=== PATIENT | male | born 1950 | race Caucasian/White ===

== ENCOUNTER → 2016-10-28 | Outpatient (CLI) | payer BC ==
[~2016-10-28] MED LIST: LPR25 PO; NCDT14 TD; OXYC5TAB PO; PRED10TA PO
[2016-10-28 13:27] LABS: BLOOD UREA NITROGEN 13 mg/dl (7-18); BUN/CREATININE RATIO 11.5 (10-20); CALCIUM 8.9 mg/dl (8.5-10.1); CARBON DIOXIDE 26 mmol/L (21-32); CHLORIDE 105 mmol/L (98-107); GLUCOSE 100 mg/dl (70-99); POTASSIUM 4.2 mmol/L (3.5-5.1); SODIUM 138 mmol/L (136-145)
[2016-10-28 13:32] LABS: CHOLESTEROL 174 mg/dl (0-200); CHOLESTEROL/HDL RATIO 4.4; HDL CHOLESTEROL 40 mg/dl; LDL CHOLESTEROL CALCULATED 105 mg/dl; TRIGLYCERIDES 143 mg/dl (0-150); VERY LOW DENSITY LIPOPROT CALC 29 mg/dl
== END | disposition home or self-care (01) ==
LOC: C.LABPVFM 07:36
PROVIDERS: ATTEND Nurse Practitioner
DX: I10 Essential (primary) hypertension (principal)

== ENCOUNTER 2017-07-24 11:25 | Emergency (ER) | payer BC, OTHER ==
[~2017-07-24] VITALS: Ht 177.8 cm; Wt 95.0 kg
[2017-07-24 11:26] VITALS: TEMP 36.5; Ht 177.8 cm; Wt 95.0 kg
[2017-07-24] MEDS ORDERED: IBUP-1050 PO (12:06)
[2017-07-24] MEDS ORDERED: UMEC1AER INH (12:06)
[2017-07-24] MEDS ORDERED: METO25TA56 PO (12:09)
--- NOTE | 2017-07-24 12:26 | DIAGNOSTIC IMAGING REPORT ---
L KNEE 3 VIEWS CLINICAL HISTORY: 67 years-old Male presenting with Left knee pain/effusion. TECHNIQUE: Frontal, lateral, and sunrise views of the left knee were obtained. COMPARISON: None. FINDINGS: Medial joint space loss. Osteophytosis in the patellofemoral compartment and to a lesser extent in the lateral compartment. Moderate knee joint effusion. No acute fracture or malalignment. Osteopenia may be present. Atherosclerosis. No patellar subluxation. IMPRESSION: 1. Moderate knee joint effusion. 2. No acute osseous injury. 3. Tricompartmental degenerative changes. Electronically signed by: iJn Cabrera M.D. 07/24/2017 12:25 PM Dictated Date/Time: 07/24/2017 12:24 PM
[2017-07-24] MEDS ORDERED: ETHYL CHLORIDE AER PER SPRAY 100 ML CAN ONE (12:31)
[2017-07-24] MEDS ORDERED: INDO-24 PO (12:59)
[2017-07-24 13:12] VITALS: BP 122/79; PULSE 62; O2SAT 94
--- NOTE | 2017-07-24 16:55 | EMERGENCY ROOM VISIT NOTE ---
ED Visit Note First contact with patient: 11:36 CHIEF COMPLAINT: Left knee effusion HISTORY OF PRESENT ILLNESS: This 67-year-old white male patient presents with a swollen left knee. He states the swelling has been present for a week. It became worse over the last 2 days. He has lost some motion. Pain is worse with weightbearing. He denies any specific injury. He does work on a ladder daily. He denies any catching or locking. No buckling. No specific injury. He does not recall twisting it or landing on it awkwardly. No snaps or pops. His accompanies him today. No treatment yet. He denies any history of gout. REVIEW OF SYSTEM: HEENT: No dizziness, visual problems, hearing loss, or tinnitus. There is no difficulty swallowing and no oral lesions are present. PULMONARY: No cough, shortness of breath, sputum production or hemoptysis. CARDIOVASCULAR: No chest pain, palpitations, shortness of breath or peripheral edema. GASTROINTESTINAL: No diarrhea, constipation, nausea, vomiting, or abdominal pain. GENITOURINARY: No dysuria, frequency, urgency or nocturia. NEUROLOGIC: No weakness, muscle tenderness, epilepsy or history of neurological problems. MUSCULOSKELETAL: No history of joint tenderness/swelling. Pause history of arthritis and arthralgias. SKIN: No rashes or lesions. ENDOCRINE: No history of diabetes, thyroid disorders, or abnormal hair growth. PMH: Significant for hypertension, elevated cholesterol, osteoarthritis Previous surgeries: None. SOCIAL HISTORY: Patient lives at home with his . Employed. No tobacco use. Family history: Reviewed with patient and unremarkable. Current medications: Reviewed and filed in patient's chart Allergies: NKDA PHYSICAL EXAM: Vital Signs: Reviewed Nurse's notes. Afebrile. MENTAL STATUS: Alert, oriented, and cooperative. General: Well-developed, well-nourished, elderly white male, in no acute distress. Laying on a bed. Skin: Warm and dry with good turgor. No rashes or lesions. No ecchymosis or erythema. Moderate to large intra-articular effusion in the left knee. The patient is not diaphoretic. No abrasions. Musculoskeletal: The left knee is tender to palpation around the superior lateral pouch. He does have medial joint line tenderness as well. No pain with palpation in the calf, popliteal fossa, or hamstring. Intact motor function to the ankle. Swollen. The range of motion is limited secondary to pain and tightness. Lacks about 10 of terminal extension. Flexion to only 90 . There is no ligamentous instability. The patient walks with an antalgic gait. Neurologic: Gross sensation is intact across the left leg by soft touch. Peripheral pulses are 2+. Data: Radiographic imaging obtained today of the left knee was reviewed by me and read by radiology. He has moderate arthritic changes, worst in the medial compartment. Periarticular osteophytes, subchondral sclerosis, and joint space narrowing are all present. No evidence of fracture. Joint effusion is evident. EMERGENCY DEPARTMENT COURSE: Patient was educated regarding today's findings. Aspiration of the knee was recommended. He agreed. A timeout was taken in the left knee was confirmed with the patient. He was placed in an extended position. Bony landmarks identified in the superior lateral pouch was marked. Skin was cleansed with Betadine 2 and a alcohol swab 1. Skin was anesthetized using of the chloride spray. An 18-gauge needle was used to aspirate 40 mL of turbid yellow synovial fluid. First 5ml were sent to the lab. Hemostasis was achieved with a Band-Aid. Compression wrap was applied. DIAGNOSIS: Left knee effusion DISCHARGE INSTRUCTIONS: Possibility of gout versus pseudogout was discussed. I do not suspect joint infection at this time. He was placed in compressigrip for edema control. Ice and elevate frequently to reduce pain and swelling. Patient was started empirically on indomethacin 50 mg 3 times daily with food until pain resolves. Maintain hydration. Limit protein intake. Ice to and elevation to the knee frequently for the next 72 hours. Crystal analysis, Gram stain and culture, and cell count were ordered for the synovial fluid. Possibility of ligamentous injury, meniscal injury, and articular cartilage injury were also considered and discussed. Current/Historical Medications Scheduled Ibuprofen (Advil), 200 MG PO UD Indomethacin (Indocin), 50 MG PO TID Metoprolol Tartrate (Lopressor) (Lopressor), 25 MG PO BID Umeclidinium-Vilanterol (Anoro Ellipta 62.5-25 Mcg/INH), 1 PUFF INH QAM Allergies Coded Allergies: No Known Allergies (Unverified , 07/24/17) Vital Signs Date Time Temp Pulse Resp B/P (MAP) Pulse Ox O2 Delivery O2 Flow Rate FiO2 07/24/17 13:12 62 18 122/79 94 Room Air 07/24/17 11:26 36.5 69 16 150/70 94 Room Air Laboratory Results Test 07/24/17 12:35 Synovial Fluid Source KNEE Synovial Fluid Color YELLOW Synovial Fluid Appearance CLOUDY Synovial Fluid WBC 17840 /uL (0-200) Synovial Fluid RBC 63853 /uL Synovial Fluid Polynuclear WBCs % 87.3 % Synovial Fluid Mononuclear WBCs % 12.7 % Medications Administered Medications (Trade) Dose Ordered Sig/Kellen Route Start Time Stop Time Status Last Admin Dose Admin Ethyl Chloride (Ethyl Chloride Aerosol Per Crary) 1 spry STK-MED ONCE .ROUTE 07/24/17 12:31 07/24/17 12:32 DC 07/24/17 12:41 1 SPRY Departure Information Dispostion Home / Self-Care Condition GOOD Prescriptions Indomethacin (Indocin) 50 Mg Cap 50 MG PO TID, #15 CAP Prov: Quentin Henderson,P.A. 07/24/17 Forms HOME CARE DOCUMENTATION FORM, TYLENOL USE, Work Instructions, Specific Date: 07/28/17 Additional Instructions: Please excuse Amaury from work until 07/28/17. IMPORTANT VISIT INFORMATION Patient Instructions My [facility] Additional Instructions Ice and elevate the knee frequently to reduce pain and swelling Keep the compression wrap in place for edema control-remove for bathing Indomethacin 1 pill 3 times a day with food, until pain resolves Supplement with Tylenol every 6 hours as needed Follow up with your PCP as needed Return to the ED for any acute worsening of symptoms Work Instructions Specific Date: 07/28/17 Additional Work Instructions: Please excuse Amaury from work until 07/28/17.
== END 2017-07-24 13:14 | disposition home or self-care (01) ==
LOC: C.EDB 11:26 → C.EDD 13:14
DX: M25.462 Effusion, left knee (principal); I10 Essential (primary) hypertension; E78.5 Hyperlipidemia, unspecified; M19.90 Unspecified osteoarthritis, unspecified site

== ENCOUNTER 2025-02-24 02:42 | Inpatient (IN) ==
[2025-02-24] MEDS: ONDANSETRON INJ 2 MG/ML 2 ML VIAL ONE (03:28)
[2025-02-24] MEDS: SODIUM CHLORIDE 0.9% 500 ML IV SCH (04:18)
[2025-02-24 04:39] LABS: Alanine Aminotransferase 96.0 U/L (7-52); Albumin Globulin Ratio 1.1 (0.9-2); Albumin Level 4.1 gm/dl (3.4-5.0); Alkaline Phosphatase 76.0 U/L (34-104); Anion Gap 15.0 (3-11); Bilirubin,Total 1.1 mg/dl (0.2-1.0); Blood Urea Nitrogen 36.0 mg/dl (6-23); Calcium 9.1 mg/dl (8.6-10.3); Carbon Dioxide 18.0 mmol/L (21-32); Chloride 98.0 mmol/L (98-107); Creatinine Clr Calc Pharmacy 36.2 ml/min; Globulin 3.8 gm/dl (2.5-4.0); Glucose 241.0 mg/dl (70-99(Fasting)); Magnesium 2.1 mg/dl (1.7-2.4); Potassium 4.1 mmol/L (3.5-5.1); Sodium 131.0 mmol/L (136-145); Total Protein 7.9 gm/dl (6.0-8.3)
[2025-02-24] MEDS: FAMOTIDINE 20MG IV PUSH 20 MG/5 ML SYR IV STA (04:41)
[2025-02-24] MEDS: CALCIUM CARBONATE 500 MG CHEWABLE TAB PO STA (04:41)
[2025-02-24 04:54] LABS: Thyroid Stimulating Hormone 2.737 uIu/ml (0.300-4.500)
[2025-02-24] MEDS: DIPHTHER/TETAN/PERTUS Vaccine (Tdap, Adol/Adult) 0.5mL IM ONE (05:06)
[2025-02-24 05:08] LABS: Chlamydia pneumoniae PCR Not Detected (NotDetected); Coronavirus 229E PCR Not Detected (NotDetected); Coronavirus CoV-2 (COVID19)PCR Not Detected (NotDetected); Coronavirus HKU1 PCR Not Detected (NotDetected); Coronavirus NL63 PCR Not Detected (NotDetected); Coronavirus OC43PCR Not Detected (NotDetected); Human Metapneumovirus PCR Not Detected (NotDetected); Parainfluenza Virus 1 PCR Not Detected (NotDetected); Parainfluenza Virus 2 PCR Not Detected (NotDetected); Parainfluenza Virus 3 PCR Not Detected (NotDetected); Parainfluenza Virus 4 PCR Not Detected (NotDetected); Respiratory Syncytial VirusPCR Not Detected (NotDetected); Rhinovirus/Enterovirus PCR DETECTED (NotDetected)
--- NOTE | 2025-02-24 05:08 | XRay Report ---
EXAM: XR chest 1V portable CLINICAL HISTORY: weakness TECHNIQUE: An X-ray image of the chest was obtained in AP projection. COMPARISON: With the prior study dated 11/16/2024 and 06/27/2024. FINDINGS: Pulmonary Parenchyma: Bilateral lower lung zone scattered reticulonodularity is stable since the prior CT. The right hilar shadow corresponds to a prominent osteophyte. There is no evidence of consolidation, collapse, or focal opacities. No pulmonary nodules are identified. There is no evidence of pleural effusion or pleural thickening. Heart and Mediastinum: An increased cardiothoracic ratio is noted. There is no mediastinal widening or masses. No hilar or mediastinal lymphadenopathy is present. Bony Thorax: Right AC joint osteoarthritis is noted. The bony thorax appears intact without fractures or deformities. Soft Tissues: The soft tissues overlying the chest wall are unremarkable. IMPRESSION: 1. Bilateral lower lung zone scattered reticulonodularity is stable since the prior CT. 2. The right hilar shadow corresponds to a prominent osteophyte. 3. No newly developed lesions are appreciated. Electronically signed by Karl Mcneil 02-24-2025 05:08 AM
[2025-02-24] MEDS: SODIUM CHLORIDE 0.9% 500 ML IV ONE (05:12)
--- NOTE | 2025-02-24 05:21 | Emergency Department Note ---
ED Visit Note Laceration Repair Location: Left eyebrow Total length: 2.6cm Complexity: Simple Verbal consent was obtained after the risks and benefits were explained, including but not limited to bleeding, scarring, infection, pain, and bone/joint/nerve damage. At this time, the risks of the procedure are less than the risks of NOT performing the procedure. A time out was taken and the correct patient and site identified. The skin was prepped with betadine. The target area was anesthetized with 2 ml of 1% lidocaine without epinephrine. Copious irrig ation was performed using nss. The skin was re-prepped with betadine and a sterile field set. The wound was explored for foreign bodies and none found. Examination revealed no injury to deep structures such as tendons, bone, or significant blood vessels. Debridement was not performed. The wound edges were approximated using 3, 6-0 simple interrupted nylon sutures. Hemostasis and excellent approximation was achieved. Antibacterial ointment and a sterile dressing applied. Detailed wound care instructions and signs and symptoms of infection reviewed with the pt. No complications and the patient tolerated the procedure well. .
--- NOTE | 2025-02-24 05:23 | Emergency Department Note ---
Impression & Plan DAVID (acute kidney injury), Fall, Facial laceration, Thrombocytopenia Admit to the [facility] ED Provider Note NAME: VICKIE FELIX AGE: 74 SEX: Male INFORMANT: Patient ED PROVIDER(S): Dana Thakur DO CHIEF COMPLAINT: Fall PLAN: Disposition: Admit to the [facility] MEDICAL DECISION MAKING: This is a 74-year-old male patient who was walking to the bathroom tonight when he became so weak he fell to the ground and was unable to get up. Patient states that he has been weak all week and has had difficulty getting out of bed for the past 2 days. He describes having some diarrhea and wonders if he has a UTI as he becomes nauseated when he has to urinate and become slightly incontinent. Patient describes very little food intake for the past 2 days. Patient wears 2 L of oxygen chronically but feels more short of breath. When patient fell to the ground he struck the left side of his face and caused a laceration just above his left eyebrow. He was given an Adacel booster here and the laceration was repaired by Jada Jeff PA-C. Please see her procedure note dictation for details. Patient went for CT scan of the brain, facial bones and cervical spine to rule out acute traumatic injuries. Patient was noted to be thrombocytopenic on laboratory testing. And there was concern for anaplasmosis on peripheral smear. Additional blood work was sent along with Lyme testing. Patient has DAVID with a BUN of 36 and creatinine of 2.09. Glucose was elevated to 41. AST at 105 and ALT at 96 [employer] testing was positive for rhinovirus and enterovirus. Troponin was 17.8. Patient was bolused with IV normal saline solution for obvious signs of dehydration and his DAVID. Patient does describe urinary symptoms. We were awaiting urinalysis. I discussed the case with the [facility] Hospitalist and they will evaluate for further inpatient care. Care/management discussed with: logistic manager [facility] Triage Nursing notes: reviewed and agree with them. Vital Signs: reviewed and remarkable for tachycardia Additional History obtained from: patient's Chronic Medical/Social Conditions affecting care: none Prior/ Outside/ External records reviewed: I did review his recent wellness visit from [facility] Differential Diagnosis: UTI, dehydration, facial bone fractures, head injury, C-spine injury Diagnostics, independently interpreted by me: ECG: sinus tachycardia at a rate of [address] segment elevation or signs of ischemia. There were frequent PVCs. Cardiac Monitoring: Sinus tachycardia at a rate of 110 with frequent PVCs Imaging studies: portable chest x-ray: As per [facility] CT scan of the brain: As per [facility] CT scan of the facial bones: As per [facility] CT scan of the cervical spine: As per [facility] HPI: 74 year old Male arrives for evaluation of fall. Patient has been having weakness and difficulty getting out of bed for the past 2 days. He has had very little oral intake of food over the past 2 days. He describes urinary symptoms over the past couple of days. When he did get out of bed tonight to go to the bathroom, he states that his legs gave out on him and he fell to the ground. PAST MEDICAL HISTORY: See Below, PAST SURGICAL HISTORY: See Below, SOCIAL HISTORY: See Below, HOME MEDICATIONS: See list ALLERGIES: None VITALS: See Below PHYSICAL EXAMINATION: Primary Survey Airway: Intact Breathing: Normal, breath sounds equal bilaterally Circulation: Skin warm, distal pulses 2+, capillary refill less than 2 seconds Disability Pupils: Equal and reactive to light, 5mm, brisk GCS: 15, E = 6 V=5 M= 4 Motor Function: Moves all extremities. Sensory: No deficits Secondary Survey GEN: Well developed and well-nourished HEAD: Normal cephalic with a tiny puncture wound to the bridge of the nose and a 2.6 cm laceration above the left eyebrow. EYES: Pupils round reactive to light, conjunctiva clear, extraocular movements intact, no raccoons eyes ENT: No fluid in external acoustic canals, no hemotympanum, no morelos's sign, nares patent, oropharynx clear NECK: No JVD, midline trachea, no cervical spine tenderness. HEART: Tachycardic rate and regular rhythm LUNGS: Clear to auscultation bilaterally. CHEST: Chest wall non-tender, no bruising/deformity ABD: No Monahan-Mac's or Uvaldo's sign, soft, non-tender, no rebound or guarding, PELVIS: Stable to rock BACK: No step offs or deformities, T-L spine non tender EXT: 2+ global pulses, moving all extremities well, +5/5 muscle strength globally NEURO: CNII-XII grossly intact, no sensory deficits PROCEDURES: Please see suture repair dictation by Jada Jeff PA-C. Emergency Department treatment: desk monitor, supplemental oxygen, IM Adacel, IV normal saline bolus x 2 Emergency Department course: The patient was evaluated in room A-11 as an injury alert. A complete history and physical was performed. Laboratory studies were drawn as above. Order was placed for continuous cardiac monitoring. The patient was in a sinus tachycardia at a rate of 110. Twelve-lead EKG was obtained as described above. Portable chest x-ray was performed. Patient went for CT scan of the brain, facial bones and cervical spine. Patient was given Adacel booster. He was bolused with 500 cc of saline. I did review some of the results with the patient and his . He was given another 500 cc bolus of saline. The wound on his face was repaired by Jada Jeff PA-C. Please see her procedure note dictation for details. I discussed the case with the [facility] Hospitalist and they will evaluate for further inpatient care. 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 possible Hx CVA or Stephenson palsy?? Nasal sinus congestion Frequent PVCs Bradycardia Positive colorectal cancer screening using Cologuard test Severe chronic obstructive pulmonary disease Fatigue (Acute) Emphysema lung (Chronic) Hypertension (Chronic) Medical History History of COVID-19 (2021) no ongoing issues known. History of skin cancer Emphysema lung not to pt knowledge/never been brought up per pt. COPD (chronic obstructive pulmonary disease) 2 L oxygen to be used at night. In process of getting oxygen/have nothing yet. HTN (hypertension) Surgical History History of colonoscopy History of Mohs micrographic surgery for skin cancer Status post aortic aneurysm repair (11/2015) Family History Denies family history of Ovarian cancer Prostate cancer Myocardial infarction Breast cancer Colorectal cancer Social History Smoking Status: Former smoker Tobacco Type: Cigarettes Age Started Using Tobacco: 17; Age Quit Using Tobacco: 65; packs per day: 1; Cigarettes Per Day: 30; Second Hand Exposure: No; Do You Dip or Chew Tobacco: No (hx , quit 2016); Hx Alcohol Use: Yes Alcohol type: beer Alcohol Intake Frequency: 2-3 x/Week Hx Substance Use: No Preferred Language: Japanese Communication Ability: Effective Visual Impairment: No Limitations Hearing Ability: Normal [employer] Required: No Beliefs That Will Affect Care: None marital status: Current Living Situation: Spouse current occupational status: retired How many Children do You have: 1 Feels Safe at Home: Yes Childhood Exposure to Second-Hand Smoke: No Diet: regular caffeine: Yes during the past year weight has: remained stable Dental Care, Regularly: Yes Physical Activity Frequency: 3-4 Times per Week Seatbelt Use: sometimes Sunscreen Use: No Do you think of yourself as: straight/heterosexual Gender Identity: Male Assistive Devices: Glasses Allergies Allergies Allergy/AdvReac Type Severity Reaction Status Date / Time No Known Allergies Allergy Verified 02/24/25 02:57 Home Meds Home Medications Medication Instructions Recorded Confirmed ergocalciferol (vitamin D2) 50 mcg 50 mcg PO DAILY 04/02/21 02/24/25 (2,000 unit) capsule multivitamin 1 tab PO DAILY 09/08/21 02/24/25 albuterol sulfate 90 mcg/actuation 2 puff inhalation UD PRN shortness 01/10/24 02/24/25 aerosol inhaler of breath or wheezing fluticasone propionate 50 1 spray intranasal BID PRN 10/18/24 02/24/25 mcg/actuation nasal Congestion spray,suspension aspirin 81 mg tablet,delayed 81 mg PO DAILY 01/09/25 02/24/25 release (Adult Low Dose Aspirin) Previous Rx's Medication Instructions Recorded nebulizer with tubing #1 ea 04/20/23 metoprolol tartrate 25 mg tablet 25 mg PO BID #180 tabs 04/24/24 albuterol sulfate 2.5 mg/3 mL 2.5 mg (3 mL) inhalation QID PRN 06/19/24 (0.083 %) solution for nebulization shortness of breath or wheezing #180 mL ipratropium 0.5 mg-albuterol 3 mg 3 ml inhalation Q4H PRN copd #90 mL 07/04/24 (2.5 mg base)/3 mL nebulization soln fluticasone fur. 100 mcg-umeclid 1 inh inhalation DAILY #180 ea 10/13/24 62.5 mcg-vilant 25 mcg inhalat.powder (Trelegy Ellipta) rosuvastatin 5 mg tablet 5 mg PO DAILY #90 tabs 10/18/24 Results & Data (ED) Vital Signs Vital Signs - 24 hr 02/24/25 02:46 02/24/25 02:50 02/24/25 02:55 Temperature 36.9 C Temperature Source Oral Pulse Rate 113 H 117 H Pulse Rate [Apical] Respiratory Rate 22 Respiratory Effort / Characteristics Pursed Lip Short of Breath Blood Pressure 137/79 Blood Pressure [Left Arm] Blood Pressure Mean 98 Blood Pressure Mean [Left Arm] Pulse Oximetry 95 96 Oxygen Delivery Method Nasal Cannula Nasal Cannula Oxygen Flow Rate 2 Sepsis Recent Fever Within 48 Hours No Sepsis New/Unexplained Change in Mental Status No Sepsis Action Taken by Nursing No Action Required 02/24/25 04:00 Temperature Temperature Source Pulse Rate Pulse Rate [Apical] 102 H Respiratory Rate 20 Respiratory Effort / Characteristics Non-Labored Blood Pressure Blood Pressure [Left Arm] 115/76 Blood Pressure Mean Blood Pressure Mean [Left Arm] 89 Pulse Oximetry 95 Oxygen Delivery Method Nasal Cannula Oxygen Flow Rate 2 Sepsis Recent Fever Within 48 Hours Sepsis New/Unexplained Change in Mental Status Sepsis Action Taken by Nursing Laboratory Data 02/24/25 04:06 02/24/25 04:06 Lab Results 02/24/25 02/24/25 02/24/25 Range/Units 02:52 04:06 04:13 WBC 6.22 (4.8-10.8) K/ul RBC 5.53 (4.70-6.10) M/uL Hgb 17.2 (14.0-18.0) g/dl Hct 49.5 (42.0-52.0) % MCV 89.5 (80.0-100.0) fL MCH 31.1 (25.0-34.0) pg MCHC 34.7 (32.0-36.0) g/dL RDW Std Deviation 43.9 (36.4-46.3) fL RDW Coeff of Bubba 13.3 (11.5-14.5) % Plt Count 63 L (130-400) K/uL MPV 11.8 (9.4-12.4) fL Immature Gran % (Auto) 0.6 % Neut % (Auto) 80.6 % Lymph % (Auto) 10.1 % Owen % (Auto) 8.4 % Eos % (Auto) 0.0 % Baso % (Auto) 0.3 % Neut # (Auto) 5.01 (1.40-6.50) K/uL Lymph # (Auto) 0.63 L (1.20-3.40) K/uL Owen # (Auto) 0.52 (0.11-0.59) K/uL Eos # (Auto) 0.00 (0.00-0.50) K/uL Baso # (Auto) 0.02 (0.00-0.20) K/uL Immature Gran # (Auto) 0.04 (0.01-0.20) K/uL Sodium 131 L (136-145) mmol/L Potassium 4.1 (3.5-5.1) mmol/L Chloride 98 (98-107) mmol/L Carbon Dioxide 18 L (21-32) mmol/L Anion Gap 15 H (3-11) BUN 36 H (6-23) mg/dl Creatinine 2.09 H (0.6-1.4) mg/dl Est Cr Clr Drug Dosing 36.2 ml/min eGFR 32.81 BUN/Creatinine Ratio 17.2 (10-20) Glucose 241 H (70-99(Fasting)) mg/dl Calcium 9.1 (8.6-10.3) mg/dl Magnesium 2.1 (1.7-2.4) mg/dl Total Bilirubin 1.1 H (0.2-1.0) mg/dl AST 105 H (13-39) U/L ALT 96 H (7-52) U/L Alkaline Phosphatase 76 (34-104) U/L Total Creatine Kinase 355 H (30-223) U/L Troponin I High Sens 17.8 (0-20) pg/ml Total Protein 7.9 (6.0-8.3) gm/dl Albumin 4.1 (3.4-5.0) gm/dl Globulin 3.8 (2.5-4.0) gm/dl Albumin/Globulin Ratio 1.1 (0.9-2) TSH 2.737 (0.300-4.500) uIu/ml Adenovirus (PCR) Not Detected (NotDetected) Anaplasma Smear See Comment A Anaplasma Comment B. pertussis DNA (PCR) Not Detected (NotDetected) B.parapertussis DNA PCR Not Detected (NotDetected) Lyme Disease Screen Positive H (Negative) Lyme Tier 2 IgG Confirm Positive H (Negative) Lyme Tier 2 IgM Confirm Negative (Negative) C. pneumoniae DNA (PCR) Not Detected (NotDetected) Coronavirus OC43 (PCR) Not Detected (NotDetected) Coronavirus HKU1 (PCR) Not Detected (NotDetected) Coronavirus 229E (PCR) Not Detected (NotDetected) SARS-CoV-2 (PCR) Not Detected (NotDetected) Coronavirus NL63 (PCR) Not Detected (NotDetected) Human Metapneumovir PCR Not Detected (NotDetected) Influenza Type A (PCR) Not Detected (NotDetected) Influenza Type B (PCR) Not Detected (NotDetected) M. pneumoniae (PCR) Not Detected (NotDetected) Parainfluenza 1 (PCR) Not Detected (NotDetected) Parainfluenza 2 (PCR) Not Detected (NotDetected) Parainfluenza 3 (PCR) Not Detected (NotDetected) Parainfluenza 4 (PCR) Not Detected (NotDetected) RSV (PCR) Not Detected (NotDetected) Entero/Rhino (PCR) DETECTED A (NotDetected) Administered Medications Aspirin (Aspirin 81 Mg Ectab) 81 mg PO DAILY [facility] Stop: 03/26/25 08:59 Last Admin: 02/24/25 10:20 Dose: 81 mg Documented By: NICOLASA Doxycycline Hyclate (Doxycycline Hyclate 100 Mg Cap) 100 mg PO BID DEBRA Stop: 03/10/25 09:29 Last Admin: 02/24/25 10:19 Dose: 100 mg Documented By: NICOLASA Fluticasone Furoate (Fluticasone Furoate 100mcg 14 Puffs/Inhaler) 1 puffs INH DAILY DEB[facility] Stop: 03/26/25 09:14 Last Admin: 02/24/25 10:20 Dose: 1 puffs Documented By: TNK Lactated Ringer's (Lr) 1,000 mls @ 125 mls/hr IV .Q8H DEBRA Stop: 02/25/25 00:59 Last Admin: 02/24/25 10:24 Dose: 125 mls/hr Documented By: TNK Metoprolol Tartrate (Metoprolol Tartrate 25 Mg Tab) 25 mg PO BID DEBRA Stop: 03/26/25 08:59 Last Admin: 02/24/25 10:20 Dose: 25 mg Documented By: TNK Rosuvastatin Calcium (Rosuvastatin Calcium 5 Mg Tab) 5 mg PO DAILY DEBRA Stop: 03/26/25 08:59 Last Admin: 02/24/25 10:20 Dose: 5 mg Documented By: TNK Umeclidinium/Vilanterol (Umeclidinium/Vilanterol 62.5/25mcg 7 Puffs/Inhaler) 1 puffs INH DAILY DEBRA Stop: 03/26/25 09:14 Last Admin: 02/24/25 10:20 Dose: 1 puffs Documented By: TNK Discontinued Medications Calcium Carbonate (Calcium Carbonate 500 Mg Chewable Tab) 500 mg PO NOW STA Stop: 02/24/25 04:33 Last Admin: 02/24/25 04:41 Dose: 500 mg Documented By: abl Diphtheria/Pertussis/Tetanus Vacc (Diphther/Tetan/Pertus Vaccine (Tdap, Adol/Adult) 0.5ml) 0.5 ml IM .ONCE ONE Stop: 02/24/25 04:54 Last Admin: 02/24/25 05:06 Dose: 0.5 ml Documented By: abl Sodium Chloride (Nss) 500 mls @ 999 mls/hr IV .Q31M DEBRA Stop: 02/24/25 04:45 Last Infusion: 02/24/25 04:55 Dose: Infused Documented By: abl Admin: 02/24/25 04:18 Dose: 999 mls/hr Documented By: abl Famotidine (Pepcid 20mg Iv Push) 20 mg in 5 mls @ 2.5 mls/min IV NOW STA Stop: 02/24/25 04:33 Last Admin: 02/24/25 04:41 Dose: 2.5 mls/min Documented By: abl Sodium Chloride (Nss) 500 mls @ 999 mls/hr IV .Q31M ONE Stop: 02/24/25 05:16 Last Infusion: 02/24/25 06:36 Dose: Infused Documented By: abl Admin: 02/24/25 05:12 Dose: 999 mls/hr Documented By: dre Lidocaine HCl (Lidocaine 1% Local 20 Ml Vial) 3 ml INFIL NOW ONE Stop: 02/24/25 04:46 Last Admin: 02/24/25 06:12 Dose: 3 ml Documented By: BC Nitroglycerin (Nitroglycerin Sl 0.4 Mg/Tab Tab) Confirm Administered Dose 0.4 mg .ROUTE .STK-MED ONE Stop: 02/24/25 14:16 Last Admin: 02/24/25 14:18 Dose: 0.4 mg Documented By: NICOLASA Nitroglycerin (Nitroglycerin Sl 0.4 Mg/Tab Tab) 0.4 mg SL NOW STA Stop: 02/24/25 14:17 Last Admin: 02/24/25 14:21 Dose: Not Given Documented By: NICOLASA Non-Formulary Medication (Hfmmesiwpfl-Bdalsnlod-Vogswman [Trelegy Ellipta]) 1 puffs INH DAILY DEBRA Stop: 03/26/25 08:59 Last Admin: 02/24/25 10:26 Dose: Not Given Documented By: NICOLASA Ondansetron HCl (Ondansetron Inj 2 Mg/Ml 2 Ml Vial) Confirm Administered Dose 4 mg .ROUTE .STK-MED ONE Stop: 02/24/25 03:28 Last Admin: 02/24/25 03:28 Dose: 4 mg Documented By: dre Imaging Data Radiologist's Impression: Chest X-Ray 02/24/25 04:06 EXAM: XR chest 1V portable CLINICAL HISTORY: weakness TECHNIQUE: An X-ray image of the chest was obtained in AP projection. COMPARISON: With the prior study dated 11/16/2024 and 06/27/2024. FINDINGS: Pulmonary Parenchyma: Bilateral lower lung zone scattered reticulonodularity is stable since the prior CT. The right hilar shadow corresponds to a prominent osteophyte. There is no evidence of consolidation, collapse, or focal opacities. No pulmonary nodules are identified. There is no evidence of pleural effusion or pleural thickening. Heart and Mediastinum: An increased cardiothoracic ratio is noted. There is no mediastinal widening or masses. No hilar or mediastinal lymphadenopathy is present. Bony Thorax: Right AC joint osteoarthritis is noted. The bony thorax appears intact without fractures or deformities. Soft Tissues: The soft tissues overlying the chest wall are unremarkable. IMPRESSION: 1. Bilateral lower lung zone scattered reticulonodularity is stable since the prior CT. 2. The right hilar shadow corresponds to a prominent osteophyte. 3. No newly developed lesions are appreciated. Electronically signed by Karl Mcneil 02-24-2025 05:[address] 02/24/25 04:45 EXAM: CT cervical spine wo con CLINICAL HISTORY: trauma. TECHNIQUE: CT scan of the cervical spine was performed without the administration of intravenous contrast. Contiguous axial images were obtained from the skull base to the upper thoracic spine. Coronal and sagittal reformatted images were also reviewed. One of the following dose reduction techniques was utilized for this exam: automated exposure control, adjustment of the mA and/or kV according to patient size, and use of iterative reconstruction. COMPARISON: No previous studies are available for comparison. FINDINGS: Vertebrae: The vertebral bodies are normal in height and alignment. There is no evidence of acute fracture or dislocation. The cortical and trabecular bone patterns are normal. There are no signs of lytic or sclerotic lesions. The configuration of the posterior elements is normal. Intervertebral Discs: C2-C3: There is no significant disc pathology, and no apparent spinal canal or neural foramen stenosis. C3-C4: There is a right paracentral and foraminal protrusion (4.5 mm) with adjacent bony hypertrophy and right facet joint arthropathy, causing mild spinal canal stenosis and right moderate to severe neural foramen stenosis. C4-C5: There is a central protrusion indenting the anterior epidural space without apparent spinal canal or neural foramen stenosis. C5-C6 and C6-C7: There is a diffuse disc bulge with adjacent bony hypertrophy causing spinal canal stenosis and bilateral moderate to severe neural foramen stenosis, and bilateral mild facet joint arthropathy exacerbating the pressure effect. C7-T1: There is right facet joint arthropathy causing mild stenosis of the right neural foramen, but no significant disc pathology and no apparent spinal canal or neural foramen stenosis. The intervertebral disc spaces are preserved. Facet Joints: There are diffuse osteoarthritic changes of the facet joints without evidence of dislocation or subluxation. Prevertebral Soft Tissues: The prevertebral soft tissues are normal in thickness, without evidence of mass or abnormal fluid collection. Additional Findings: No other significant findings are noted in the visualized soft tissue structures or bony elements. IMPRESSION: 1. There is no evidence of acute fracture or dislocation. 2. There are multilevel disc degenerative changes with disc bulges, prominently at C3-C4, C5-C6, and C6-C7, causing moderate to severe pressure effect as described. Electronically signed by Karl Mcneil 02-24-2025 06:[address] 02/24/25 04:45 EXAM: CT facial bones wo con CLINICAL HISTORY: trauma TECHNIQUE: Non-contrast CT scan of the facial bones was performed with sagittal and coronal multiplanar reconstruction. One of the following dose reduction techniques was utilized for this exam: automated exposure control, adjustment of the mA and/or kV according to patient size, and use of iterative reconstruction. COMPARISON: None. FINDINGS: Sinuses: There is fluid opacification of the right frontal sinus and mild mucosal thickening of the right-sided ethmoid air cells. A mucous retention cyst is noted in the left maxillary sinus. There is minimal thickening of the right maxillary sinus. There is a deviated nasal septum with a spur on the left side. Nasal Cavity: The nasal cavity is unremarkable. There are no masses, polyps, or deviations. Orbits: The orbits are normal in size and shape. The extraocular muscles and optic nerves are normal. There is no evidence of orbital masses or proptosis. Maxilla and Mandible: There is normal appearance of the maxillary and mandibular bones. There are no fractures or lytic or sclerotic lesions. There is normal dentition without significant periodontal disease. Facial Bones: There are no fractures or deformities. The zygomatic arches, nasal bones, and other facial structures are intact. Soft Tissues: The soft tissues of the face are normal. There are no abnormal masses, swelling, or lymphadenopathy. Salivary Glands: The parotid, submandibular, and sublingual glands are normal. There is no evidence of sialadenitis or masses. Temporomandibular Joints (TMJ): There is normal appearance of the TMJs bilaterally. There is no evidence of joint effusion, degenerative changes, or dislocation. There are degenerative changes in the visualized cervical spine. IMPRESSION: 1. No gross fracture or dislocation. 2. No evidence of soft tissue injury. Electronically signed by Karl Mcneil 02-24-2025 06:[address] 02/24/25 04:45 EXAM: CT head/brain wo con CLINICAL HISTORY: trauma TECHNIQUE: Axial non-contrast CT scan of the brain was performed from the skull base to the high parietal region. One of the following dose reduction techniques was utilized for this exam: automated exposure control, adjustment of the mA and/or kV according to patient size, and use of iterative reconstruction. COMPARISON: 09/29/2024 MR FINDINGS: Brain Parenchyma: Mild bilateral periventricular hypodensities are suggestive of microvascular ischemic changes. Age-appropriate involutional brain changes are present, with deepening of the cortical sulci and prominence of fissures. Age-appropriate involutional brain changes are present, with deepening of the cortical sulci and prominence of the sylvian fissure. Left basal ganglia calcification is redemonstrated. Ventricular System: The ventricles are normal in size and configuration. There is no evidence of hydrocephalus or ventricular enlargement. Cerebellum and Brainstem: No masses, lesions, or areas of abnormal density are identified. Orbits: There is normal appearance of the globes, optic nerves, and extraocular muscles. There is no evidence of orbital masses or abnormal density. Sinuses: There is opacification of the right frontal sinus and thickening of the right ethmoid air cells. There is a deviated nasal septum with a spur on the left side. Mastoid Air Cells: The mastoid air cells are clear. There is no evidence of mastoiditis. Skull: There is normal skull morphology. IMPRESSION: 1. No evidence of hemorrhage. 2. No established territorial ischemic infarction. 3. Periventricular microvascular ischemic changes bilaterally. 4. No significant interval changes. Electronically signed by Karl Mcneil 02-24-2025 06:14 AM Discharge Plan Visit Data Chief Complaint: Fall Stated Complaint: FALL, HIT FACE, LAC TO NOSE, SOB ED Provider: Dana Thkaur Discharge Problem: DAVID (acute kidney injury), Fall, Facial laceration, Thrombocytopenia Condition: Serious Discharge Instructions Interventions: ED Discharge Assessment Last Done: 02/24/25 09:00
--- NOTE | 2025-02-24 05:33 | History & Physical Report ---
Date of Service February 24, 2025 Assessment & Plan (1) Weakness: (2) DAVID (acute kidney injury): (3) Atherogenic dyslipidemia: (4) Hypertension: (5) Emphysema lung: Plan 74yo male with COPD presenting with one week of illness, decreased oral intake, dysuria. Generalized weakness with a fall at home this evening resulting in laceration over left eyebrow #Generalized weakness - multifactorial. Patient with Entero/Rhino virus, dehydration, possible UTI given incontinence -Admit to medical -Awaiting UA - antibiotics should be initiated if infection present -Maintain isolation for Enterovirus -Tylenol PRN #DAVID/Dehydration - poor oral intake for the last several days as well as GI losses with vomiting and diarrhea. Cr=2.09 - last normal at 1.13 in December 2024 -Avoid nephrotoxic agents -Renal dosing where needed -IVF with LR at 125mL/hr x 2L #Hyperlipidemia -Continue Crestor #COPD - stable, no cough or wheeze -Continue Trelegy -DuoNebs q 4 hours -Abuterol PRN -O2 qHS History of Present Illness Chief Complaint: weakness, syncope Primary Care Provider: JONH Wall Amaury Damon is a 74yo male with history of COPD on O2 qHS, HTN presenting with generalized weakness and a syncopal event at home. Patient has not been feeling well for the last week - generalized weakness and fatigue as well as some nausea, vomiting, diarrhea and abdominal discomfort. Not much PO intake for the last two days. Also with some urinary incontinence. Has been getting more weak, mostly in bed the last 2 days. This evening got up to go to the bathroom and fell and hit his face sustaining a laceration over left eyebrow In the ER he is afebrile, HD stable Allergies Allergy/AdvReac Type Severity Reaction Status Date / Time No Known Allergies Allergy Verified 02/24/25 02:57 Home Medications Medication Instructions Recorded Confirmed Type ergocalciferol (vitamin D2) 50 mcg 50 mcg PO DAILY 04/02/21 02/24/25 History (2,000 unit) capsule multivitamin 1 tab PO DAILY 09/08/21 02/24/25 History nebulizer with tubing #1 ea 04/20/23 01/23/25 Rx albuterol sulfate 90 mcg/actuation 2 puff inhalation UD PRN shortness 01/10/24 02/24/25 History aerosol inhaler of breath or wheezing metoprolol tartrate 25 mg tablet 25 mg PO BID #180 tabs 04/24/24 02/24/25 Rx albuterol sulfate 2.5 mg/3 mL 2.5 mg (3 mL) inhalation QID PRN 06/19/24 02/24/25 Rx (0.083 %) solution for nebulization shortness of breath or wheezing #180 mL ipratropium 0.5 mg-albuterol 3 mg 3 ml inhalation Q4H PRN copd #90 mL 07/04/24 02/24/25 Rx (2.5 mg base)/3 mL nebulization soln fluticasone fur. 100 mcg-umeclid 1 inh inhalation DAILY #180 ea 10/13/24 02/24/25 Rx 62.5 mcg-vilant 25 mcg inhalat.powder (Trelegy Ellipta) fluticasone propionate 50 1 spray intranasal BID PRN 10/18/24 02/24/25 History mcg/actuation nasal Congestion spray,suspension rosuvastatin 5 mg tablet 5 mg PO DAILY #90 tabs 10/18/24 02/24/25 Rx aspirin 81 mg tablet,delayed 81 mg PO DAILY 01/09/25 02/24/25 History release (Adult Low Dose Aspirin) Past Med/Surg History Problem List (Updated 02/24/25 @ 06:28 by Lisa Hollis DO) Weakness DAVID (acute kidney injury) Atherogenic dyslipidemia Abdominal aortic aneurysm Dilated aortic root 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 possible Hx CVA or Stephenson palsy?? Nasal sinus congestion Frequent PVCs Bradycardia Positive colorectal cancer screening using Cologuard test Severe chronic obstructive pulmonary disease Fatigue (Acute) Emphysema lung (Chronic) Hypertension (Chronic) Medical History History of COVID-19 (2021) no ongoing issues known. History of skin cancer Emphysema lung not to pt knowledge/never been brought up per pt. COPD (chronic obstructive pulmonary disease) 2 L oxygen to be used at night. In process of getting oxygen/have nothing yet. HTN (hypertension) Surgical History History of colonoscopy History of Mohs micrographic surgery for skin cancer Status post aortic aneurysm repair (11/2015) Family History Denies family history of Ovarian cancer Prostate cancer Myocardial infarction Breast cancer Colorectal cancer Social History Smoking Status: Former smoker Tobacco Type: Cigarettes Age Started Using Tobacco: 17; Age Quit Using Tobacco: 65; packs per day: 1; Cigarettes Per Day: 30; Second Hand Exposure: No; Do You Dip or Chew Tobacco: No (hx , quit 2015); Hx Alcohol Use: Yes Alcohol type: beer Alcohol Intake Frequency: 2-3 x/Week Hx Substance Use: No Preferred Language: Moldovan Communication Ability: Effective Visual Impairment: No Limitations Hearing Ability: Normal Gis Scientist Required: No Beliefs That Will Affect Care: None marital status: Current Living Situation: Spouse current occupational status: retired How many Children do You have: 1 Feels Safe at Home: Yes Childhood Exposure to Second-Hand Smoke: No Diet: regular caffeine: Yes during the past year weight has: remained stable Dental Care, Regularly: Yes Physical Activity Frequency: 3-4 Times per Week Seatbelt Use: sometimes Sunscreen Use: No Do you think of yourself as: straight/heterosexual Gender Identity: Male Assistive Devices: Glasses Review of Systems Review of Systems: All systems reviewed & are unremarkable except as noted in HPI & below Physical Exam Physical Exam: General: patient resting comfortably, NAD, non-toxic in appearance, AA&O x 4 Skin: warm, dry, intact, no rashes or lesions HEENT: PERRL, EOMI, anicteric sclera, conjunctiva without injection, external ear normal to inspection and nontender, nares patent,dry mucus membranes, dentition intact, no oropharyngeal lesions, neck supple, trachea midline, no LAD, no thyromegaly, no JVD, laceration over left eyebrow s/p repair in ER Heart: +S1/S2, regular, no m/r/g Lungs: equal air entry bilaterally, no rales/rhonchi/wheezes Abd: +BS, soft, NT/ND, no masses/organomegaly/ascites Ext: warm, 2+ pulses in UE/LE bilaterally, no clubbing/cyanosis or edema Neuro: nonfocal, patient AA&O x 4, speech intact, no facial droop, moving all extremities on command with equal strength 5/5 Results & Data Results & Data Vital Signs (Past 12 Hours) Vital Signs Temp Pulse Pulse Resp BP BP Pulse Ox 02/24/25 04:00 102 H 20 115/76 95 02/24/25 02:55 36.9 C 117 H 22 137/79 96 02/24/25 02:50 95 02/24/25 02:46 113 H O2 Del Method O2 Flow Rate 02/24/25 04:00 Nasal Cannula 2 02/24/25 02:55 Nasal Cannula 02/24/25 02:50 Nasal Cannula 2 02/24/25 02:46 Laboratory Results Laboratory Results WBC 6.22 K/ul (4.8-10.8) 02/24/25 04:06 RBC 5.53 M/uL (4.70-6.10) 02/24/25 04:06 Hgb 17.2 g/dl (14.0-18.0) 02/24/25 04:06 Hct 49.5 % (42.0-52.0) 02/24/25 04:06 MCV 89.5 fL (80.0-100.0) 02/24/25 04:06 MCH 31.1 pg (25.0-34.0) 02/24/25 04:06 MCHC 34.7 g/dL (32.0-36.0) 02/24/25 04:06 RDW Std Deviation 43.9 fL (36.4-46.3) 02/24/25 04:06 RDW Coeff of Bubba 13.3 % (11.5-14.5) 02/24/25 04:06 Plt Count 63 K/uL (130-400) L 02/24/25 04:06 MPV 11.8 fL (9.4-12.4) 02/24/25 04:06 Sodium 131 mmol/L (136-145) L 02/24/25 04:06 Potassium 4.1 mmol/L (3.5-5.1) 02/24/25 04:06 Chloride 98 mmol/L (98-107) 02/24/25 04:06 Carbon Dioxide 18 mmol/L (21-32) L 02/24/25 04:06 Anion Gap 15 (3-11) H 02/24/25 04:06 BUN 36 mg/dl (6-23) H 02/24/25 04:06 Creatinine 2.09 mg/dl (0.6-1.4) H 02/24/25 04:06 Est Cr Clr Drug Dosing 36.2 ml/min 02/24/25 04:06 eGFR 32.81 02/24/25 04:06 BUN/Creatinine Ratio 17.2 (10-20) 02/24/25 04:06 Glucose 241 mg/dl (70-99(Fasting)) H 02/24/25 04:06 Calcium 9.1 mg/dl (8.6-10.3) 02/24/25 04:06 Magnesium 2.1 mg/dl (1.7-2.4) 02/24/25 04:06 Total Bilirubin 1.1 mg/dl (0.2-1.0) H 02/24/25 04:06 AST 105 U/L (13-39) H 02/24/25 04:06 ALT 96 U/L (7-52) H 02/24/25 04:06 Alkaline Phosphatase 76 U/L (34-104) 02/24/25 04:06 Troponin I High Sens 17.8 pg/ml (0-20) 02/24/25 04:06 Total Protein 7.9 gm/dl (6.0-8.3) 02/24/25 04:06 Albumin 4.1 gm/dl (3.4-5.0) 02/24/25 04:06 Globulin 3.8 gm/dl (2.5-4.0) 02/24/25 04:06 Albumin/Globulin Ratio 1.1 (0.9-2) 02/24/25 04:06 TSH 2.737 uIu/ml (0.300-4.500) 02/24/25 04:06 Adenovirus (PCR) Not Detected (NotDetected) 02/24/25 04:13 B. pertussis DNA (PCR) Not Detected (NotDetected) 02/24/25 04:13 B.parapertussis DNA PCR Not Detected (NotDetected) 02/24/25 04:13 C. pneumoniae DNA (PCR) Not Detected (NotDetected) 02/24/25 04:13 Coronavirus OC43 (PCR) Not Detected (NotDetected) 02/24/25 04:13 Coronavirus HKU1 (PCR) Not Detected (NotDetected) 02/24/25 04:13 Coronavirus 229E (PCR) Not Detected (NotDetected) 02/24/25 04:13 SARS-CoV-2 (PCR) Not Detected (NotDetected) 02/24/25 04:13 Coronavirus NL63 (PCR) Not Detected (NotDetected) 02/24/25 04:13 Human Metapneumovir PCR Not Detected (NotDetected) 02/24/25 04:13 Influenza Type A (PCR) Not Detected (NotDetected) 02/24/25 04:13 Influenza Type B (PCR) Not Detected (NotDetected) 02/24/25 04:13 M. pneumoniae (PCR) Not Detected (NotDetected) 02/24/25 04:13 Parainfluenza 1 (PCR) Not Detected (NotDetected) 02/24/25 04:13 Parainfluenza 2 (PCR) Not Detected (NotDetected) 02/24/25 04:13 Parainfluenza 3 (PCR) Not Detected (NotDetected) 02/24/25 04:13 Parainfluenza 4 (PCR) Not Detected (NotDetected) 02/24/25 04:13 RSV (PCR) Not Detected (NotDetected) 02/24/25 04:13 Entero/Rhino (PCR) DETECTED (NotDetected) A 02/24/25 04:13 Impressions Chest X-Ray 02/24/25 04:06 EXAM: XR chest 1V portable CLINICAL HISTORY: weakness TECHNIQUE: An X-ray image of the chest was obtained in AP projection. COMPARISON: With the prior study dated 11/16/2024 and 06/27/2024. FINDINGS: Pulmonary Parenchyma: Bilateral lower lung zone scattered reticulonodularity is stable since the prior CT. The right hilar shadow corresponds to a prominent osteophyte. There is no evidence of consolidation, collapse, or focal opacities. No pulmonary nodules are identified. There is no evidence of pleural effusion or pleural thickening. Heart and Mediastinum: An increased cardiothoracic ratio is noted. There is no mediastinal widening or masses. No hilar or mediastinal lymphadenopathy is present. Bony Thorax: Right AC joint osteoarthritis is noted. The bony thorax appears intact without fractures or deformities. Soft Tissues: The soft tissues overlying the chest wall are unremarkable. IMPRESSION: 1. Bilateral lower lung zone scattered reticulonodularity is stable since the prior CT. 2. The right hilar shadow corresponds to a prominent osteophyte. 3. No newly developed lesions are appreciated. Electronically signed by Karl Mcneil 02-24-2025 05:[address] 02/24/25 04:45 EXAM: CT cervical spine wo con CLINICAL HISTORY: trauma. TECHNIQUE: CT scan of the cervical spine was performed without the administration of intravenous contrast. Contiguous axial images were obtained from the skull base to the upper thoracic spine. Coronal and sagittal reformatted images were also reviewed. One of the following dose reduction techniques was utilized for this exam: automated exposure control, adjustment of the mA and/or kV according to patient size, and use of iterative reconstruction. COMPARISON: No previous studies are available for comparison. FINDINGS: Vertebrae: The vertebral bodies are normal in height and alignment. There is no evidence of acute fracture or dislocation. The cortical and trabecular bone patterns are normal. There are no signs of lytic or sclerotic lesions. The configuration of the posterior elements is normal. Intervertebral Discs: C2-C3: There is no significant disc pathology, and no apparent spinal canal or neural foramen stenosis. C3-C4: There is a right paracentral and foraminal protrusion (4.5 mm) with adjacent bony hypertrophy and right facet joint arthropathy, causing mild spinal canal stenosis and right moderate to severe neural foramen stenosis. C4-C5: There is a central protrusion indenting the anterior epidural space without apparent spinal canal or neural foramen stenosis. C5-C6 and C6-C7: There is a diffuse disc bulge with adjacent bony hypertrophy causing spinal canal stenosis and bilateral moderate to severe neural foramen stenosis, and bilateral mild facet joint arthropathy exacerbating the pressure effect. C7-T1: There is right facet joint arthropathy causing mild stenosis of the right neural foramen, but no significant disc pathology and no apparent spinal canal or neural foramen stenosis. The intervertebral disc spaces are preserved. Facet Joints: There are diffuse osteoarthritic changes of the facet joints without evidence of dislocation or subluxation. Prevertebral Soft Tissues: The prevertebral soft tissues are normal in thickness, without evidence of mass or abnormal fluid collection. Additional Findings: No other significant findings are noted in the visualized soft tissue structures or bony elements. IMPRESSION: 1. There is no evidence of acute fracture or dislocation. 2. There are multilevel disc degenerative changes with disc bulges, prominently at C3-C4, C5-C6, and C6-C7, causing moderate to severe pressure effect as described. Electronically signed by Karl Mcneil 02-24-2025 06:[address] 02/24/25 04:45 EXAM: CT facial bones wo con CLINICAL HISTORY: trauma TECHNIQUE: Non-contrast CT scan of the facial bones was performed with sagittal and coronal multiplanar reconstruction. One of the following dose reduction techniques was utilized for this exam: automated exposure control, adjustment of the mA and/or kV according to patient size, and use of iterative reconstruction. COMPARISON: None. FINDINGS: Sinuses: There is fluid opacification of the right frontal sinus and mild mucosal thickening of the right-sided ethmoid air cells. A mucous retention cyst is noted in the left maxillary sinus. There is minimal thickening of the right maxillary sinus. There is a deviated nasal septum with a spur on the left side. Nasal Cavity: The nasal cavity is unremarkable. There are no masses, polyps, or deviations. Orbits: The orbits are normal in size and shape. The extraocular muscles and optic nerves are normal. There is no evidence of orbital masses or proptosis. Maxilla and Mandible: There is normal appearance of the maxillary and mandibular bones. There are no fractures or lytic or sclerotic lesions. There is normal dentition without significant periodontal disease. Facial Bones: There are no fractures or deformities. The zygomatic arches, nasal bones, and other facial structures are intact. Soft Tissues: The soft tissues of the face are normal. There are no abnormal masses, swelling, or lymphadenopathy. Salivary Glands: The parotid, submandibular, and sublingual glands are normal. There is no evidence of sialadenitis or masses. Temporomandibular Joints (TMJ): There is normal appearance of the TMJs bilaterally. There is no evidence of joint effusion, degenerative changes, or dislocation. There are degenerative changes in the visualized cervical spine. IMPRESSION: 1. No gross fracture or dislocation. 2. No evidence of soft tissue injury. Electronically signed by Karl Mcneil 02-24-2025 06:[address] 02/24/25 04:45 EXAM: CT head/brain wo con CLINICAL HISTORY: trauma TECHNIQUE: Axial non-contrast CT scan of the brain was performed from the skull base to the high parietal region. One of the following dose reduction techniques was utilized for this exam: automated exposure control, adjustment of the mA and/or kV according to patient size, and use of iterative reconstruction. COMPARISON: 09/29/2024 MR FINDINGS: Brain Parenchyma: Mild bilateral periventricular hypodensities are suggestive of microvascular ischemic changes. Age-appropriate involutional brain changes are present, with deepening of the cortical sulci and prominence of fissures. Age-appropriate involutional brain changes are present, with deepening of the cortical sulci and prominence of the sylvian fissure. Left basal ganglia calcification is redemonstrated. Ventricular System: The ventricles are normal in size and configuration. There is no evidence of hydrocephalus or ventricular enlargement. Cerebellum and Brainstem: No masses, lesions, or areas of abnormal density are identified. Orbits: There is normal appearance of the globes, optic nerves, and extraocular muscles. There is no evidence of orbital masses or abnormal density. Sinuses: There is opacification of the right frontal sinus and thickening of the right ethmoid air cells. There is a deviated nasal septum with a spur on the left side. Mastoid Air Cells: The mastoid air cells are clear. There is no evidence of mastoiditis. Skull: There is normal skull morphology. IMPRESSION: 1. No evidence of hemorrhage. 2. No established territorial ischemic infarction. 3. Periventricular microvascular ischemic changes bilaterally. 4. No significant interval changes. Electronically signed by Karl Mcneil 02-24-2025 06:14 AM PG Care Time/CCT Total # of Minutes Spent Total Time Spent with Patient: Total time spent is greater than 50% in coordination of care (as documented) at patient's floor/unit and/or counseling patient: Coding Level of Care Code 43954 INT INP/OBS CARE 3/75MIN Diagnoses Weakness R53.1 DAVID (acute kidney injury) N17.9 Atherogenic dyslipidemia E78.5 Primary hypertension I10 Hypertension type: primary hypertension Emphysema lung J43.9 (4) Hypertension Hypertension type: primary hypertension Qualified Code(s): I10 - Essential (primary) hypertension
[2025-02-24 05:42] LABS: Hematocrit (blood only) 49.5 % (42.0-52.0); Hemoglobin 17.2 g/dl (14.0-18.0); Mean Corpuscular Hemoglobin 31.1 pg (25.0-34.0); Mean Corpuscular Volume 89.5 fL (80.0-100.0); Platelet Count 63 K/uL (130-400); RDW Standard Deviation 43.9 fL (36.4-46.3); Red Blood Count 5.53 M/uL (4.70-6.10); White Blood Count 6.22 K/ul (4.8-10.8)
--- NOTE | 2025-02-24 06:01 | CT Scan Report ---
EXAM: CT cervical spine wo con CLINICAL HISTORY: trauma. TECHNIQUE: CT scan of the cervical spine was performed without the administration of intravenous contrast. Contiguous axial images were obtained from the skull base to the upper thoracic spine. Coronal and sagittal reformatted images were also reviewed. One of the following dose reduction techniques was utilized for this exam: automated exposure control, adjustment of the mA and/or kV according to patient size, and use of iterative reconstruction. COMPARISON: No previous studies are available for comparison. FINDINGS: Vertebrae: The vertebral bodies are normal in height and alignment. There is no evidence of acute fracture or dislocation. The cortical and trabecular bone patterns are normal. There are no signs of lytic or sclerotic lesions. The configuration of the posterior elements is normal. Intervertebral Discs: C2-C3: There is no significant disc pathology, and no apparent spinal canal or neural foramen stenosis. C3-C4: There is a right paracentral and foraminal protrusion (4.5 mm) with adjacent bony hypertrophy and right facet joint arthropathy, causing mild spinal canal stenosis and right moderate to severe neural foramen stenosis. C4-C5: There is a central protrusion indenting the anterior epidural space without apparent spinal canal or neural foramen stenosis. C5-C6 and C6-C7: There is a diffuse disc bulge with adjacent bony hypertrophy causing spinal canal stenosis and bilateral moderate to severe neural foramen stenosis, and bilateral mild facet joint arthropathy exacerbating the pressure effect. C7-T1: There is right facet joint arthropathy causing mild stenosis of the right neural foramen, but no significant disc pathology and no apparent spinal canal or neural foramen stenosis. The intervertebral disc spaces are preserved. Facet Joints: There are diffuse osteoarthritic changes of the facet joints without evidence of dislocation or subluxation. Prevertebral Soft Tissues: The prevertebral soft tissues are normal in thickness, without evidence of mass or abnormal fluid collection. Additional Findings: No other significant findings are noted in the visualized soft tissue structures or bony elements. IMPRESSION: 1. There is no evidence of acute fracture or dislocation. 2. There are multilevel disc degenerative changes with disc bulges, prominently at C3-C4, C5-C6, and C6-C7, causing moderate to severe pressure effect as described. Electronically signed by Karl Mcneil 02-24-2025 06:01 AM
[2025-02-24] MEDS: LIDOCAINE 1% LOCAL 20 ML VIAL INFIL ONE (06:12)
--- NOTE | 2025-02-24 06:14 | CT Scan Report ---
EXAM: CT head/brain wo con CLINICAL HISTORY: trauma TECHNIQUE: Axial non-contrast CT scan of the brain was performed from the skull base to the high parietal region. One of the following dose reduction techniques was utilized for this exam: automated exposure control, adjustment of the mA and/or kV according to patient size, and use of iterative reconstruction. COMPARISON: 09/29/2024 MR FINDINGS: Brain Parenchyma: Mild bilateral periventricular hypodensities are suggestive of microvascular ischemic changes. Age-appropriate involutional brain changes are present, with deepening of the cortical sulci and prominence of fissures. Age-appropriate involutional brain changes are present, with deepening of the cortical sulci and prominence of the sylvian fissure. Left basal ganglia calcification is redemonstrated. Ventricular System: The ventricles are normal in size and configuration. There is no evidence of hydrocephalus or ventricular enlargement. Cerebellum and Brainstem: No masses, lesions, or areas of abnormal density are identified. Orbits: There is normal appearance of the globes, optic nerves, and extraocular muscles. There is no evidence of orbital masses or abnormal density. Sinuses: There is opacification of the right frontal sinus and thickening of the right ethmoid air cells. There is a deviated nasal septum with a spur on the left side. Mastoid Air Cells: The mastoid air cells are clear. There is no evidence of mastoiditis. Skull: There is normal skull morphology. IMPRESSION: 1. No evidence of hemorrhage. 2. No established territorial ischemic infarction. 3. Periventricular microvascular ischemic changes bilaterally. 4. No significant interval changes. Electronically signed by Karl Mcneil 02-24-2025 06:14 AM
--- NOTE | 2025-02-24 06:16 | CT Scan Report ---
EXAM: CT facial bones wo con CLINICAL HISTORY: trauma TECHNIQUE: Non-contrast CT scan of the facial bones was performed with sagittal and coronal multiplanar reconstruction. One of the following dose reduction techniques was utilized for this exam: automated exposure control, adjustment of the mA and/or kV according to patient size, and use of iterative reconstruction. COMPARISON: None. FINDINGS: Sinuses: There is fluid opacification of the right frontal sinus and mild mucosal thickening of the right-sided ethmoid air cells. A mucous retention cyst is noted in the left maxillary sinus. There is minimal thickening of the right maxillary sinus. There is a deviated nasal septum with a spur on the left side. Nasal Cavity: The nasal cavity is unremarkable. There are no masses, polyps, or deviations. Orbits: The orbits are normal in size and shape. The extraocular muscles and optic nerves are normal. There is no evidence of orbital masses or proptosis. Maxilla and Mandible: There is normal appearance of the maxillary and mandibular bones. There are no fractures or lytic or sclerotic lesions. There is normal dentition without significant periodontal disease. Facial Bones: There are no fractures or deformities. The zygomatic arches, nasal bones, and other facial structures are intact. Soft Tissues: The soft tissues of the face are normal. There are no abnormal masses, swelling, or lymphadenopathy. Salivary Glands: The parotid, submandibular, and sublingual glands are normal. There is no evidence of sialadenitis or masses. Temporomandibular Joints (TMJ): There is normal appearance of the TMJs bilaterally. There is no evidence of joint effusion, degenerative changes, or dislocation. There are degenerative changes in the visualized cervical spine. IMPRESSION: 1. No gross fracture or dislocation. 2. No evidence of soft tissue injury. Electronically signed by Karl Mcneil 02-24-2025 06:16 AM
[2025-02-24 06:42] LABS: Immature Granulocytes # (auto) 0.04 K/uL (0.01-0.20); Immature Granulocytes % (auto) 0.6 %
[2025-02-24 07:49] LABS: Appearance Urine Cloudy (Clear); Cast Urine Automated >20 /lpf (0-2); Glucose Urine UA Negative (Negative); WBC Urine Automated 0-5 /hpf (0-5)
[2025-02-24 08:01] LABS: Bacteria Urine Automated 1+ (None Seen)
[2025-02-24] MEDS ORDERED: ACETAMINOPHEN 325 MG TAB PO PRN (09:00)
[2025-02-24] MEDS ORDERED: ALBUT/IPRATROP 3MG/0.5MG NEB 3 ML VIAL INH PRN (09:00)
[2025-02-24] MEDS ORDERED: ALBUTEROL 0.083% NEBU SOLN 3 ML VIAL INH PRN (09:00)
[2025-02-24] MEDS ORDERED: FLUTICASONE PROPIONATE NA SPR 16 GM BTL NAE PRN (09:00)
[2025-02-24] MEDS ORDERED: ONDANSETRON INJ 2 MG/ML 2 ML VIAL IV PRN (09:00)
[2025-02-24 09:35] LABS: Hemoglobin A1C 5.5 % (4.5-5.6)
[2025-02-24] MEDS: DOXYCYCLINE HYCLATE 100 MG CAP PO SCH (10:19)
[2025-02-24] MEDS: METOPROLOL TARTRATE 25 MG TAB PO SCH (10:20)
[2025-02-24] MEDS: UMECLIDINIUM/VILANTEROL 62.5/25MCG 7 PUFFS/INHALER INH SCH (10:20)
[2025-02-24] MEDS: ASPIRIN 81 MG ECTAB PO SCH (10:20)
[2025-02-24] MEDS: ROSUVASTATIN CALCIUM 5 MG TAB PO SCH (10:20)
[2025-02-24] MEDS: FLUTICASONE FUROATE 100MCG 14 PUFFS/INHALER INH SCH (10:20)
[2025-02-24] MEDS: LACTATED RINGER'S 1,000 ML IV SCH (10:24)
[2025-02-24] MEDS: NON-FORMULARY MEDICATION (Fluticasone-Umeclidin-Vilanter [Trelegy Ellipta] 100-62.5-25 mcg INH SCH (10:26)
[2025-02-24 10:36] LABS: Creatine Kinase 355.0 U/L (30-223)
[2025-02-24 11:06] LABS: Lyme Screen Rflx Confirmation Positive (Negative)
[2025-02-24 13:06] LABS: Lyme Ab IgG 2nd Tier Confirm Positive (Negative)
[2025-02-24 13:07] LABS: Lyme Ab IgM 2nd Tier Confirm Negative (Negative)
[2025-02-24] MEDS: NITROGLYCERIN SL 0.4 MG/TAB TAB ONE (14:18)
[2025-02-24] MEDS: NITROGLYCERIN SL 0.4 MG/TAB TAB SL STA (14:21)
[2025-02-24 16:53] LABS: Anion Gap 10.0 (3-11); Blood Urea Nitrogen 35.0 mg/dl (6-23); Calcium 8.7 mg/dl (8.6-10.3); Carbon Dioxide 21.0 mmol/L (21-32); Chloride 103.0 mmol/L (98-107); Creatinine Clr Calc Pharmacy 48.4 ml/min; Glucose 98.0 mg/dl (70-99(Fasting)); Potassium 3.6 mmol/L (3.5-5.1); Sodium 134.0 mmol/L (136-145)
[2025-02-24] MEDS: MELATONIN 3 MG TAB PO PRN (20:32)
--- NOTE | 2025-02-24 21:33 | Communication Note ---
Date of Service: February 24, 2025 Late entry - About 2pm - prior to patient being transferred from the ER to the 2nd floor - he complained to the ER nursing staff that he was having left-sided chest pain. Nursing obtained EKG. EKG about 2pm was UNCHANGED from EKG at time of admission. I had ordered a dose of nitro SL for the pain, but by the time it was given, his pain was already subsiding - down to 3/10 on pain scale. Vitals were unchanged, and he reported no dyspnea. He was subsequently transferred to the floor. When I saw him on he was resting comfortably in bed watching the [employer] Football game. He reported that his pain on the left chest was "coming and going" and "felt like a muscle pull." Denied any substernal chest pain. Denied any dyspnea at rest (although he reported dyspnea on exertion for a couple of weeks). He reported the SL nitro given down in the ER didn't really change the pain. He confirmed he had had a tick bite near the right hip region about 2 weeks ago. He pulled the tick off his skin. Exam: gen - lying flat in bed w/o dyspnea, NAD, nontoxic neck - no JVD mouth - MMM heart - RRR, s1 s2, no murmur chest - reproducible chest wall tenderness at junction of left ribs with the sternum; the reproducible pain was the same pain he had been having all afternoon lungs - mild end-exp wheezes b/l, no rales, no distress abd - soft NT ND BS+ ext - no edema, pulses 2+ b/l skin - band-aid in place left supraorbital region labs and all imaging reviewed from ER visit A/P: 1. Rhinovirus infection 2. 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 +Lyme disease serology - IgG - suggests chronic infection or old infection 4. thrombocytopenia - suspect 2nd to #2 5. abnormal LFTs - suspect 2nd to #2 6. COPD 7. musculoskeletal chest wall pain given his exam findings, reassuring EKG, etc. 8. facial laceration 9. syncope -doxycycline 100mg BID for #2 -droplet precautions for #1 and supportive care -repeat CBC, CMP am -possible COPD exacerbation from #1 - consider steroids -#7 - recheck a troponin now -in light of syncope, h/o aortic root dilatation, etc - recheck echo Kimo Brothers MD
[2025-02-25 06:43] LABS: Hematocrit (blood only) 41.2 % (42.0-52.0); Hemoglobin 14.2 g/dl (14.0-18.0); Mean Corpuscular Hemoglobin 31.2 pg (25.0-34.0); Mean Corpuscular Volume 90.5 fL (80.0-100.0); Platelet Count 58 K/uL (130-400); RDW Standard Deviation 43.6 fL (36.4-46.3); Red Blood Count 4.55 M/uL (4.70-6.10); White Blood Count 5.65 K/ul (4.8-10.8)
[2025-02-25 07:03] LABS: Alanine Aminotransferase 87.0 U/L (7-52); Albumin Level 3.6 gm/dl (3.4-5.0); Alkaline Phosphatase 58.0 U/L (34-104); Anion Gap 6.0 (3-11); Bilirubin,Total 0.9 mg/dl (0.2-1.0); Blood Urea Nitrogen 24.0 mg/dl (6-23); Calcium 8.6 mg/dl (8.6-10.3); Carbon Dioxide 26.0 mmol/L (21-32); Chloride 105.0 mmol/L (98-107); Creatinine Clr Calc Pharmacy 59.5 ml/min; Glucose 102.0 mg/dl (70-99(Fasting)); Potassium 3.9 mmol/L (3.5-5.1); Sodium 137.0 mmol/L (136-145); Total Protein 6.4 gm/dl (6.0-8.3)
[2025-02-25] MEDS: SODIUM CHLORIDE 0.9% 1,000 ML IV SCH (08:32)
--- NOTE | 2025-02-25 17:11 | Hospitalist Progress Note ---
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 Had fall at home the evening of presentation resulting in a laceration over left eyebrow s/p TDaP and s/p lac repair by ER provider. #anaplasmosis - -anaplasmosis smear is +, low platelets, abnl LFTs, etc all highly suggest anaplasmosis infection -further, he had a tick bite on the right flank about 2 weeks prior to this admission -day #2 of doxycycline 100mg BID -plan 14 days of Rx -anticipate labs should begin to improve tomorrow #lyme disease IgG positive - -uncertain if OLD infection vs chronic infection -either way will be on doxycycline for anaplasmosis and thus will have adequate coverage #rhinovirus infection - -likely contributing to some of his symptoms especially his chest/COPD symptoms -droplet precautions -supportive care #low platelets - -likely 2nd to anaplasmosis -cbc in am -suspect the level will start to trend up next 1-2 days #abnormal LFTs - -likely will cont to improve -suspect 2nd to anaplasmosis #DAVID/Dehydration - -DAVID improving nicely with IV fluids #chest wall pain - -likely contusion from fall -but will obtain rib series to r/o rib fracture #Hyperlipidemia - -Continue Crestor #COPD - -Continue Trelegy -DuoNebs q6h scheduled -O2 -may have exacerbation from the rhinovirus -- solumedrol x 1 and re-eval for ongoing IV steroids tomorrow -sputum cx -flutter valve #eyebrow laceration left - -s/p repair in ER on day of presentation -s/p TDaP #HTN - -metoprolol BID #b/l arm numbness, cervical spine DJD - -c-spine CT with considerable DJD/DDD at C5-C6 -suspect the arm numbness is due to such -consider outpatient EMG -consider MRI c-spine PT, OT Admission and Anticipated Discharge Date Admission Date: February 24, 2025 Subjective patient reports ongoing dyspnea on exertion present for 1-2 weeks his fatigue/weakness is not as bad appetite improving he has not been out of bed much since admission coughing at times no myalgias tele overnight wnl he continues with mild discomfort over the left chest he questions if he hit his left chest when he fell Review of Systems Review of Systems: gen - no fevers or chills cv - no substernal chest pain, no orthopnea, no edema pulm - cough, congestion, sputum, dyspnea on exertion GI - no N/V/abd pain neuro - for 1 year getting intermittent b/l arm numbness (from shoulders down to hands), sometimes the RUE, sometimes the LUE, often wakes up with the symptoms - lasts a few minutes then goes away; not exertional; denies neck pain Physical Exam Physical Exam: gen - NAD, lying in bed watching TV mouth - MMM neck - no JVD heart - RRR, s1 s2, no murmur lungs - poor airation, scattered wheezes b/l, no rales chest - tender to palpation L chest abd - soft NT ND BS+ ext - no edema, pulses 2+ b/l neuro - strength 5/5 x 4 exts; DTRs 2+ upper exts b/l Results & Data Results & Data Vital Signs (Past 12 Hours) Vital Signs Temp Pulse Pulse Resp BP Pulse Ox O2 Del Method 02/25/25 15:39 36.4 C L 66 18 109/66 96 Nasal Cannula 02/25/25 13:00 70 02/25/25 11:09 36.4 C L 67 18 116/67 96 Nasal Cannula 02/25/25 08:30 Nasal Cannula 02/25/25 07:16 36.6 C 65 18 89/51 L 96 Room Air 02/25/25 07:00 65 O2 Flow Rate 02/25/25 15:39 2 02/25/25 13:00 02/25/25 11:09 2 02/25/25 08:30 2 02/25/25 07:16 2 02/25/25 07:00 Laboratory Results Laboratory Results - last 24 hr 02/25/25 06:16 WBC 5.65 RBC 4.55 L Hgb 14.2 D Hct 41.2 L MCV 90.5 MCH 31.2 MCHC 34.5 RDW Std Deviation 43.6 RDW Coeff of Bubba 13.2 Plt Count 58 L MPV 12.4 Sodium 137 Potassium 3.9 Chloride 105 Carbon Dioxide 26 Anion Gap 6 BUN 24 H Creatinine 1.24 D Est Cr Clr Drug Dosing 59.5 eGFR 61.39 BUN/Creatinine Ratio 19.4 Glucose 102 H Calcium 8.6 Total Bilirubin 0.9 Direct Bilirubin 0.3 H AST 88 H ALT 87 H Alkaline Phosphatase 58 Total Protein 6.4 Albumin 3.6 PG Care Time/CCT Total # of Minutes Spent Total Time Spent with Patient: Total time spent is greater than 50% in coordination of care (as documented) at patient's floor/unit and/or counseling patient: Coding Level of Care Code 22580 SUB INP/OBS CARE 3/50MIN Diagnoses Anaplasmosis A77.49 Positive Lyme disease serology R76.89 Rhinovirus B34.8 Musculoskeletal chest pain R07.89 Thrombocytopenia D69.6 Facial laceration S01.81XA Fall W19.XXXA DAVID (acute kidney injury) N17.9 Dilated aortic root I77.810 COPD (chronic obstructive pulmonary disease) J44.9 Arm numbness R20.0 Cervical radiculopathy due to degenerative joint disease of spine M47.22 Primary hypertension I10 Hypertension type: primary hypertension Atherogenic dyslipidemia E78.5 Abnormal LFTs R79.89 (13) Hypertension Hypertension type: primary hypertension Qualified Code(s): I10 - Essential (primary) hypertension
[2025-02-25] MEDS: ALBUT/IPRATROP 3MG/0.5MG NEB 3 ML VIAL INH SCH (19:34)
[2025-02-25] MEDS: guaiFENesin 600 MG TABCR PO SCH (20:57)
--- NOTE | 2025-02-25 22:09 | XRay Report ---
Exam(s): XR LEFT RIBS EXAM: XR Left Ribs and AP Chest, 3 or More Views CLINICAL HISTORY: Reason for exam: recent fall, L sided anterior rib pain. TECHNIQUE: Frontal and oblique views of the left ribs and frontal view of the chest. COMPARISON: No relevant prior studies available. FINDINGS: Lungs: No consolidation. Pleural space: No significant pleural effusion. No pneumothorax. Heart: No cardiomegaly or pulmonary vascular congestion. Mediastinum: Unremarkable. Normal mediastinal contour. Bones/joints: No acute fracture. No dislocation. IMPRESSION: No displaced left rib fractures. Electronically signed by: Carlos Caruso M.D. 02/25/25 22:08 PM
[2025-02-26 07:02] LABS: Hematocrit (blood only) 41.5 % (42.0-52.0); Hemoglobin 14.8 g/dl (14.0-18.0); Mean Corpuscular Hemoglobin 31.8 pg (25.0-34.0); Mean Corpuscular Volume 89.2 fL (80.0-100.0); Platelet Count 84 K/uL (130-400); RDW Standard Deviation 43.2 fL (36.4-46.3); Red Blood Count 4.65 M/uL (4.70-6.10); White Blood Count 5.43 K/ul (4.8-10.8)
[2025-02-26 07:27] LABS: Alanine Aminotransferase 87.0 U/L (7-52); Albumin Globulin Ratio 1.2 (0.9-2); Albumin Level 3.7 gm/dl (3.4-5.0); Alkaline Phosphatase 60.0 U/L (34-104); Anion Gap 8.0 (3-11); Bilirubin,Total 0.8 mg/dl (0.2-1.0); Blood Urea Nitrogen 17.0 mg/dl (6-23); Calcium 9.0 mg/dl (8.6-10.3); Carbon Dioxide 25.0 mmol/L (21-32); Chloride 107.0 mmol/L (98-107); Creatinine Clr Calc Pharmacy 73.5 ml/min; Globulin 3.0 gm/dl (2.5-4.0); Glucose 142.0 mg/dl (70-99(Fasting)); Potassium 4.2 mmol/L (3.5-5.1); Sodium 140.0 mmol/L (136-145); Total Protein 6.7 gm/dl (6.0-8.3)
[2025-02-26 07:32] LABS: Immature Granulocytes # (auto) 0.02 K/uL (0.01-0.20); Immature Granulocytes % (auto) 0.4 %
--- NOTE | 2025-02-26 14:20 | Hospitalist Progress Note ---
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 Had fall at home the evening of presentation resulting in a laceration over left eyebrow s/p TDaP and s/p lac repair by ER provider. #anaplasmosis - -anaplasmosis smear is +, low platelets, abnl LFTs, etc all highly suggest anaplasmosis infection -further, he had a tick bite on the right flank about 2 weeks prior to this admission -day #3 of doxycycline 100mg BID -plan 14 days of Rx -platelets uptrending as expected; LFTs improving as well; he is overall clinically improving #lyme disease IgG positive - -uncertain if OLD infection vs chronic infection -either way will be on doxycycline for anaplasmosis and thus will have adequate coverage #rhinovirus infection - -likely contributing to some of his symptoms especially his chest/COPD symptoms -droplet precautions -supportive care -CTA chest today -- findings due to rhinovirus infection? -cont IV steroids - methylprednisolone 30mg BID -nebs #low platelets - -likely 2nd to anaplasmosis -improved level today -cbc in am tomorrow to ensure ongoing improvement #abnormal LFTs - -improving -suspect 2nd to anaplasmosis -LFTs am #DAVID/Dehydration - -DAVID resolved s/p IV fluids #chest wall pain - -likely contusion from fall -but will obtain rib series to r/o rib fracture #Hyperlipidemia - -Continue Crestor #COPD with exacerbation - -Continue Trelegy -DuoNebs q6h scheduled -O2 -may have exacerbation from the rhinovirus -- solumedrol BID -flutter valve #eyebrow laceration left - -s/p repair in ER on day of presentation -s/p TDaP #HTN - -metoprolol BID #b/l arm numbness, cervical spine DJD - -c-spine CT with 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 -2nd to other chronic process? -will review with pulmonary tomorrow #right knee contusion - -2nd to fall -CT knee - NO fracture PT eval ordered left message for pt's on her voicemail 02/26/25 Admission and Anticipated Discharge Date Admission Date: February 25, 2025 Subjective overall feeling better still short of breath with minimal activity, however coughing some sputum some wheezing today he is c/o right knee pain hurts over the kneecap it has been bothering him since his fall at home but this was first time he mentioned it overall strength is better but not back to baseline eating well Review of Systems Review of Systems: gen - no fevers or chills cv - no chest pain pulm - still with dyspnea GI - no nausea/emesis/diarrhea Physical Exam Physical Exam: gen - NAD, sitting in chair, looks well mouth - MMM neck - no JVD heart - RRR, s1 s2, no murmur lungs - airation improved, lungs relatively clear, no wheezes today, no rales abd - soft NT ND BS+ ext - no edema, pulses 2+ b/l musculo - right knee - tender to palpation over patella; mild ecchymoses over the right knee; no effusion; ROM intact Results & Data Results & Data Vital Signs (Past 12 Hours) Vital Signs Temp Pulse Pulse Resp BP Pulse Ox O2 Del Method 02/26/25 11:28 36.4 C L 51 L 16 118/61 92 Room Air 02/26/25 09:29 Room Air 02/26/25 08:18 36.3 C L 75 20 151/75 H 93 Room Air 02/26/25 07:05 68 18 95 Nasal Cannula 02/26/25 05:06 57 L 02/26/25 04:34 36.7 C 67 20 124/75 96 Room Air O2 Flow Rate 02/26/25 11:28 02/26/25 09:29 02/26/25 08:18 02/26/25 07:05 1 02/26/25 05:06 02/26/25 04:34 Laboratory Results Laboratory Results - last 48 hr 02/24/25 02/26/25 04:06 05:50 WBC 5.43 RBC 4.65 L Hgb 14.8 Hct 41.5 L MCV 89.2 MCH 31.8 MCHC 35.7 RDW Std Deviation 43.2 RDW Coeff of Bubba 13.2 Plt Count 84 L MPV 12.3 Immature Gran % (Auto) 0.4 Neut % (Auto) 66.8 Lymph % (Auto) 28.0 [place] % (Auto) 4.4 Eos % (Auto) 0.0 Baso % (Auto) 0.4 Neut # (Auto) 3.63 Lymph # (Auto) 1.52 [place] # (Auto) 0.24 Eos # (Auto) 0.00 Baso # (Auto) 0.02 Immature Gran # (Auto) 0.02 Peripher Smr Path Cons Sodium 140 Potassium 4.2 Chloride 107 Carbon Dioxide 25 Anion Gap 8 BUN 17 Creatinine 1.00 Est Cr Clr Drug Dosing 73.5 eGFR 79.47 BUN/Creatinine Ratio 17.0 Glucose 142 H Calcium 9.0 Total Bilirubin 0.8 AST 64 H ALT 87 H Alkaline Phosphatase 60 Total Protein 6.7 Albumin 3.7 Globulin 3.0 Albumin/Globulin Ratio 1.2 Vitamin B12 410 Diagnostic Findings Chest CTA 02/26/25 14:16 Clinical history: Rule out pulmonary embolism Technique: Axial computed tomography images were obtained of the chest after the administration of intravenous contrast according to the CT angiogram protocol Comparison is made to the prior CT dated 11/16/2024 Findings: There is no definite sign of pulmonary embolism. There is emphysema. There is no pleural effusion or pneumothorax. There are slightly worsened multifocal interstitial and small peripheral nodular opacities that measure up to 4 mm in the bilateral lower lobes and to a lesser extent the right upper lobe and right middle lobe There is no mediastinal, hilar, or axillary adenopathy. The thoracic aorta appears unremarkable with no sign of aneurysm or dissection. There is no pericardial effusion The visualized upper abdomen appears unremarkable. No fracture is seen. No focal osseous lesion is evident Impression: 1. No definite sign of pulmonary embolism 2. Emphysema 3. Multifocal peripheral interstitial and small pulmonary opacities bilaterally. This could be due to a combination of scarring and a chronic atypical inflammatory process such as KATERINE infection or atypical appearing sarcoidosis. Concurrent neoplastic nodules cannot be excluded. A follow-up chest CT could be obtained in 3-6 months Electronically signed by Micky Orozco 02-26-2025 4:32 PM Knee X-Ray 02/26/25 14:16 XR knee RT 1 or 2V routine CLINICAL HISTORY: recent fall, R knee pain/patellar pain COMPARISON: None FINDINGS: There is mild osteoarthritis. On the lateral view there is mild irregularity at the inferior aspect of the patella. No other fracture or dislocation. There is a trace joint effusion. IMPRESSION: Possible nondisplaced fracture inferior aspect of the patella. No other fractures seen. ACT 112: Negative or not required by law. Electronically signed by: Neville Nobles M.D. 02/26/2025 3:[address] 02/26/25 19:05 Exam(s): CT RIGHT KNEE Without Contrast EXAM: CT Right Lower Extremity Without Intravenous Contrast, Knee CLINICAL HISTORY: Reason for exam: ?patellar fracture on x-ray. TECHNIQUE: Axial computed tomography images of the right knee without intravenous contrast. CTDI is 24 mGy and DLP is 689 mGy-cm. Automated exposure control was utilized for the study. A dose lowering technique was utilized adhering to the principles of ALARA. COMPARISON: No relevant prior studies available. FINDINGS: Bones/joints: Focal trabecular rarefaction of the inferior pole of the patella without evidence of patellar fracture. No acute fracture or dislocation in the knee. Osteopenia. Mild tricompartment osteoarthritis. Trace joint fluid. Soft tissues: Subcutaneous edema anterior to the patellar tendon. IMPRESSION: No acute findings in the right knee. Electronically signed by: Carlos Caruso M.D. 02/26/25 20:47 PM PG Care Time/CCT Total # of Minutes Spent Total Time Spent with Patient: Total time spent is greater than 50% in coordination of care (as documented) at patient's floor/unit and/or counseling patient: Coding Level of Care Code 58688 SUB INP/OBS CARE 3/50MIN Diagnoses Anaplasmosis A77.49 Positive Lyme disease serology R76.89 Rhinovirus B34.8 Musculoskeletal chest pain R07.89 Thrombocytopenia D69.6 Facial laceration S01.81XA Fall W19.XXXA DAVID (acute kidney injury) N17.9 Dilated aortic root I77.810 COPD (chronic obstructive pulmonary disease) J44.9 Arm numbness R20.0 Cervical radiculopathy due to degenerative joint disease of spine M47.22 Primary hypertension I10 Hypertension type: primary hypertension Atherogenic dyslipidemia E78.5 Abnormal LFTs R79.[address] R93.89 Right knee pain M25.561 (13) Hypertension Hypertension type: primary hypertension Qualified Code(s): I10 - Essential (primary) hypertension
--- NOTE | 2025-02-26 15:14 | XRay Report ---
XR knee RT 1 or 2V routine CLINICAL HISTORY: recent fall, R knee pain/patellar pain COMPARISON: None FINDINGS: There is mild osteoarthritis. On the lateral view there is mild irregularity at the inferi or aspect of the patella. No other fracture or dislocation. There is a trace joint effusion. IMPRESSION: Possible nondisplaced fracture inferior aspect of the patella. No other fractures seen. ACT 112: Negative or not required by law. Electronically signed by: Neville Nobles M.D. 02/26/2025 3:13 PM
[2025-02-26] MEDS: OPTIRAY 320 125ml IV ONE (16:17)
--- NOTE | 2025-02-26 16:33 | CT Scan Report ---
Clinical history: Rule out pulmonary embolism Technique: Axial computed tomography images were obtained of the chest after the administration of intravenous contrast according to the CT angiogram protocol Comparison is made to the prior CT dated 11/16/2024 Findings: There is no definite sign of pulmonary embolism. There is emphysema. There is no pleural effusion or pneumothorax. There are slightly worsened multifocal interstitial and small peripheral nodular opacities that measure up to 4 mm in the bilateral lower lobes and to a lesser extent the right upper lobe and right middle lobe There is no mediastinal, hilar, or axillary adenopathy. The thoracic aorta appears unremarkable with no sign of aneurysm or dissection. There is no pericardial effusion The visualized upper abdomen appears unremarkable. No fracture is seen. No focal osseous lesion is evident Impression: 1. No definite sign of pulmonary embolism 2. Emphysema 3. Multifocal peripheral interstitial and small pulmonary opacities bilaterally. This could be due to a combination of scarring and a chronic atypical inflammatory process such as KATERINE infection or atypical appearing sarcoidosis. Concurrent neoplastic nodules cannot be excluded. A follow-up chest CT could be obtained in 3-6 months Electronically signed by Micky Orozco 02-26-2025 4:32 PM
[2025-02-26] MEDS: TRIAMCINOLONE ACET 0.1% CR 80 GM TUBE EXT SCH (16:48)
[2025-02-26] MEDS: ALBUT/IPRATROP 3MG/0.5MG NEB 3 ML VIAL INH SCH (19:40)
--- NOTE | 2025-02-26 20:48 | CT Scan Report ---
Exam(s): CT RIGHT KNEE Without Contrast EXAM: CT Right Lower Extremity Without Intravenous Contrast, Knee CLINICAL HISTORY: Reason for exam: ?patellar fracture on x-ray. TECHNIQUE: Axial computed tomography images of the right knee without intravenous contrast. CTDI is 24 mGy and DLP is 689 mGy-cm. Automated exposure control was utilized for the study. A dose lowering technique was utilized adhering to the principles of ALARA. COMPARISON: No relevant prior studies available. FINDINGS: Bones/joints: Focal trabecular rarefaction of the inferior pole of the patella without evidence of patellar fracture. No acute fracture or dislocation in the knee. Osteopenia. Mild tricompartment osteoarthritis. Trace joint fluid. Soft tissues: Subcutaneous edema anterior to the patellar tendon. IMPRESSION: No acute findings in the right knee. Electronically signed by: Carlos Caruso M.D. 02/26/25 20:47 PM
--- NOTE | 2025-02-27 06:58 | XCELERA ---
[id number]
[2025-02-27 07:16] LABS: Platelet Count 150 K/uL (130-400)
[2025-02-27 07:34] LABS: Alanine Aminotransferase 94 U/L (7-52); Anion Gap 10 (3-11); Blood Urea Nitrogen 19 mg/dl (6-23); Calcium 9.3 mg/dl (8.6-10.3); Carbon Dioxide 24 mmol/L (21-32); Chloride 104 mmol/L (98-107); Creatinine Clr Calc Pharmacy 79.0 ml/min; Glucose 133 mg/dl (70-99(Fasting)); Sodium 138 mmol/L (136-145)
[2025-02-27] MEDS: FAMOTIDINE 40 MG TABLET PO PRN (08:48)
[2025-02-27 08:56] LABS: Potassium 3.7 mmol/L (3.5-5.1)
--- NOTE | 2025-02-27 09:53 | Electrocardiogram Report ---
Test Reason : Blood Pressure : */* mmHG Vent. Rate : 111 BPM Atrial Rate : 111 BPM P-R Int : 174 ms QRS Dur : 84 ms QT Int : 330 ms P-R-T Axes : 47 45 80 degrees QTcB Int : 448 ms Sinus tachycardia with frequent Premature ventricular complexes Otherwise normal ECG When compared with ECG of 23-Jan-2025 10:20, (unconfirmed) Premature ventricular complexes are now Present Vent. rate has increased by 53 bpm Confirmed by Valdo Valle ([id number]) on 02/27/2025 9:53:08 AM Referred By: REFERRED SELF Confirmed By: Valdo Valle
--- NOTE | 2025-02-27 10:16 | Electrocardiogram Report ---
Test Reason : Blood Pressure : */* mmHG Vent. Rate : 71 BPM Atrial Rate : 71 BPM P-R Int : 190 ms QRS Dur : 86 ms QT Int : 418 ms P-R-T Axes : 67 43 70 degrees QTcB Int : 454 ms Sinus rhythm with occasional Premature ventricular complexes Otherwise normal ECG When compared with ECG of 24-Feb-2025 02:48, (unconfirmed) Vent. rate has decreased by 40 bpm Confirmed by Valdo Valle ([id number]) on 02/27/2025 10:16:08 AM Referred By: REFERRED SELF Confirmed By: Valdo Valle
[2025-02-27 15:20] VITALS: PULSE 73; RESP 18; TEMP 97.2; O2SAT 93
--- NOTE | 2025-02-27 17:10 | Discharge Summary ---
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 Had fall at home the evening of presentation resulting in a laceration over left eyebrow s/p TDaP and s/p lac repair by ER provider. #anaplasmosis - -anaplasmosis smear is +, low platelets, abnl LFTs, etc all highly suggest anaplasmosis infection -further, he had a tick bite on the right flank about 2 weeks prior to this admission -day #3 of doxycycline 100mg BID -plan 14 days of Rx -platelets uptrending as expected; LFTs improving as well; he is overall clinically improving #lyme disease IgG positive - -uncertain if OLD infection vs chronic infection -either way will be on doxycycline for anaplasmosis and thus will have adequate coverage #rhinovirus infection - -likely contributing to some of his symptoms especially his chest/COPD symptoms -droplet precautions -supportive care -CTA chest today -- findings due to rhinovirus infection? -cont IV steroids - methylprednisolone 30mg BID -nebs #low platelets - -likely 2nd to anaplasmosis -improved level today -cbc in am tomorrow to ensure ongoing improvement #abnormal LFTs - -improving -suspect 2nd to anaplasmosis -LFTs am #DAVID/Dehydration - -DAVID resolved s/p IV fluids #chest wall pain - -likely contusion from fall -but will obtain rib series to r/o rib fracture #Hyperlipidemia - -Continue Crestor #COPD with exacerbation - -Continue Trelegy -DuoNebs q6h scheduled -O2 -may have exacerbation from the rhinovirus -- solumedrol BID -flutter valve #eyebrow laceration left - -s/p repair in ER on day of presentation -s/p TDaP #HTN - -metoprolol BID #b/l arm numbness, cervical spine DJD - -c-spine CT with 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 -2nd to other chronic process? -will review with pulmonary tomorrow #right knee contusion - -2nd to fall -CT knee - NO fracture PT eval ordered left message for pt's on her voicemail 02/26/25 Admission HPI Per Admitting Provider Amaury Damon is a 74yo male with history of COPD on O2 qHS, HTN presenting with generalized weakness and a syncopal event at home. Patient has not been feeling well for the last week - generalized weakness and fatigue as well as some nausea, vomiting, diarrhea and abdominal discomfort. Not much PO intake for the last two days. Also with some urinary incontinence. Has been getting more weak, mostly in bed the last 2 days. This evening got up to go to the bathroom and fell and hit his face sustaining a laceration over left eyebrow In the ER he is afebrile, HD stable Discharge Exam gen - NAD, sitting in chair, looks well mouth - MMM neck - no JVD heart - RRR, s1 s2, no murmur lungs - airation improved, lungs relatively clear, no wheezes today, no rales abd - soft NT ND BS+ ext - no edema, pulses 2+ b/l musculo - right knee - tender to palpation over patella; mild ecchymoses over the right knee; no effusion; ROM intact Discharge Plan Discharge Items Reason For Visit: GENERALIZED WEAKNESS, ENTEROVIRUS INFECTION Condition on Discharge: Serious Follow-up/Referrals: Destiny Fernandez CRNP [Primary Care Provider] - 03/06/25 10:30 am Medications and DC Order Prescriptions: No Action metoprolol tartrate 25 mg tablet 25 mg PO BID Qty: 180 3RF Trelegy Ellipta 100-62.5-25 mcg blister with device 1 inh inhalation DAILY Qty: 180 3RF multivitamin Tablet 1 tab PO DAILY ergocalciferol (vitamin D2) 50 mcg (2,000 unit) capsule 50 mcg PO DAILY (DME) nebulizer with tubing See Rx Instructions .Route .MEDSUPPLY Qty: 1 0RF Rx Instructions: As directed ipratropium-albuterol 0.5 mg-3 mg(2.5 mg base)/3 mL solution for nebulization 3 ml INHALATION Q4H PRN (Reason: copd) Qty: 90 5RF fluticasone propionate 50 mcg/actuation spray,suspension 1 spray intranasal BID PRN (Reason: Congestion) Rx Instructions: administer into each nostril rosuvastatin 5 mg tablet 5 mg PO DAILY Qty: 90 3RF albuterol sulfate 2.5 mg /3 mL (0.083 %) solution for nebulization 2.5 mg inhalation QID PRN (Reason: shortness of breath or wheezing) Qty: 180 3RF aspirin [Adult Low Dose Aspirin] 81 mg tablet,delayed release (DR/EC) 81 mg PO DAILY albuterol sulfate 90 mcg/actuation HFA aerosol inhaler 2 puff inhalation UD PRN (Reason: shortness of breath or wheezing) Rx Instructions: 2 puffs inhaled every 4-6 hours PRN; rescue med Admission Data Admit Date/Time: 02/25/25 18:05 Attending Provider: Kimo Brothers Admit Provider: Lisa Hollis Primary Care Provider: Destiny Fernandez. Other Providers: Lisa Hollis; [facility] Stay Data Consultations 02/24/25 05:30 ED Decision to Admit Stat 02/27/25 15:32 Burn CD for patient Stat Diagnostic Imagining Performed 02/24/25 04:45 CT Brain [CT head/brain wo con] Stat CT cervical spine wo con Stat CT face [CT facial bones wo con] Stat 02/26/25 14:16 CT angio chest PE protocol Routine 02/26/25 19:05 CT knee RT wo con Stat Coding Diagnoses Anaplasmosis A77.49 Positive Lyme disease serology R76.89 Rhinovirus B34.8 Musculoskeletal chest pain R07.89 Thrombocytopenia D69.6 Facial laceration S01.81XA Fall W19.XXXA DAVID (acute kidney injury) N17.9 Dilated aortic root I77.810 COPD (chronic obstructive pulmonary disease) J44.9 Arm numbness R20.0 Cervical radiculopathy due to degenerative joint disease of spine M47.22 Primary hypertension I10 Hypertension type: primary hypertension Atherogenic dyslipidemia E78.5 Abnormal LFTs R79.[address] R93.89 Right knee pain M25.561
[2025-02-27 17:37] VITALS: BP 153/69
== END 2025-02-27 18:03 | disposition home health service (06) | DRG 868 ==
LOC: SUATTDRO → ED 02:42 → EDINP 02:42 → 2W 09:00